=== PATIENT | male | born 1940 | race Caucasian/White ===

== ENCOUNTER → 2019-06-18 | Outpatient (CLI) | payer MEDICARE, OTHER ==
[~2019-06-18] MED LIST: ASPIRIN E.C. 8181 MG; CELEBREX 200MG200 MG; COUMADIN 2MG2 MG/TAB; FERROUS SU325 MG/TAB PO; FOLIC ACID 40400 MCG PO; LOTREL 5/10MG C1 CAP; OSTEO-BI-FLEX 21 TAB; PRILOTC; PROBIOTIC FORMU1 CAP PO; VANCOMYCIN; VITAMIN C PUR1000 MG; VITAMIN E1000 U/CAP
== END ==
LOC: COL.RAD 07:18
DX: M43.17 Spondylolisthesis, lumbosacral region (principal); M48.07 Spinal stenosis, lumbosacral region; M21.372 Foot drop, left foot
CPT/HCPCS: A9585

== ENCOUNTER 2019-07-25 08:30 | Outpatient (RCR) | payer MEDICARE, OTHER | END 2019-07-28 13:15 | disposition home or self-care (01) | LOC: WSC 08:30 | DX: M21.372 Foot drop, left foot (principal) ==

== ENCOUNTER 2021-01-22 20:25 | Emergency (ER) | payer MEDICARE, OTHER ==
[~2021-01-22] VITALS: Ht 175.3 cm; Wt 86.4 kg
[2021-01-22] MEDS ORDERED: PRILOSEC 20MG20 MG PO (20:48)
[2021-01-22 21:43] VITALS: BP 139/76; PULSE 83
== END 2021-01-22 21:43 | disposition home or self-care (01) ==
LOC: COL.ER 20:25
DX: S61.411A Laceration without foreign body of right hand, initial encounter (principal); K21.9 Gastro-esophageal reflux disease without esophagitis; I10 Essential (primary) hypertension; Z79.82 Long term (current) use of aspirin; Z87.891 Personal history of nicotine dependence; W26.8XXA Contact with other sharp object(s), not elsewhere classified, initial encounter

== ENCOUNTER → 2021-01-29 | Outpatient (CLI) | payer MEDICARE, OTHER ==
[~2021-01-29] MED LIST changes: +PRILOSEC 20MG20 MG PO
[2021-01-29 07:16] VITALS: BP 149/86; PULSE 93; TEMP 97.6
== END ==
LOC: COL.ER 07:08
DX: Z48.02 Encounter for removal of sutures (principal)